=== PATIENT | female | born 1960 | race Caucasian/White ===

== ENCOUNTER → 2017-01-20 | Outpatient (CLI) | payer BC ==
[~2017-01-20] MED LIST: ACET-24 PO; ASPEC325 PO; BCPILLS PO; BIOTPOW17 PO; CALC600T9 PO; CHOL2000 PO; CLB/200 PO; FRRG PO; GLC/500 PO; MORP-157 PO; RXC5 PO; TRAM-10 PO; VALA500T60 PO
--- NOTE | 2017-01-20 17:51 | DIAGNOSTIC IMAGING REPORT ---
MRI right knee RIGHT LOWER EXT JOINT WITHOUT CLINICAL HISTORY: RIGHT KNEE PAIN Right pain TECHNIQUE: MRI multi axial acquisition COMPARISON STUDY: None FINDINGS: Severe degenerative change medial joint compartment. Considerable loss of articular services of the medial femoral condyle. Deterioration with loss of the substance of the bulk of the medial meniscus. Peripheral osteophytic reaction from the medial joint compartment. Moderate reactive bone marrow edema of the medial femoral condyle and medial tibial plateau. Minimal/mild degenerative change lateral joint compartment. Lateral meniscus appears intact. The collateral ligaments appear to be intact. There is a mild degree of edematous change of the medial collateral ligament. There is patellofemoral joint shows considerable loss of articular surface of the mid and medial patella. Chondromalacia patella is felt to be present. There is a very small joint effusion. There is no significant popliteal cyst. Cruciate ligaments are intact. IMPRESSION: 1. Severe degenerative change medial joint compartment with considerable substance loss of the medial meniscus . 2. Considerable deterioration of the articular services of the medial femoral condyle as well as medial tibial plateau. 3. Significant chondromalacia patella. 4. Reactive osteophytic change projecting from all major joint compartments. Electronically signed by: Pj Alanis M.D. 01/20/2017 5:50 PM Dictated Date/Time: 01/20/2017 5:45 PM
== END ==
LOC: C.MRIBC 16:12
PROVIDERS: ATTEND Orthopaedic Surgery
DX: M25.561 Pain in right knee (principal)

== ENCOUNTER 2017-03-14 06:07 | Inpatient (IN) | payer BC ==
[2017-02-22 14:21] VITALS: BMI 27.0
--- NOTE | 2017-02-22 14:53 | PAT Medication Instructions ---
Service Date Feb 22, 2017. Current Home Medication List Control Pills ( Control Pills), 1 TAB PO DAILY Calcium Carbonate-Vitamin D (Calcium + D), 1 TAB PO QAM Celecoxib (CeleBREX), 200 MG PO HS Cholecalciferol (Vitamin D3), 1 CAP PO QAM Metformin Hcl (Glucophage), 500 MG PO BID Tramadol (Ultram), 50 MG PO Q6H PRN for RN Valacyclovir (Valtrex), 500 MG PO BID PRN for PRN [Biotin], 1 TAB PO BID Medication Instructions For Your Scheduled Surgery - Check with surgeon for instructions: Celecoxib (CeleBREX), 200 MG PO HS - Hold the following medications 48 hours prior to surgery: Metformin Hcl (Glucophage), 500 MG PO BID - Hold the following medications the morning of surgery: [Biotin], 1 TAB PO BID Cholecalciferol (Vitamin D3), 1 CAP PO QAM Calcium Carbonate-Vitamin D (Calcium + D), 1 TAB PO QAM - Take the following medications the morning of surgery with a sip of water: Tramadol (Ultram), 50 MG PO Q6H PRN for RN (okay to take up to 4 hours prior to surgery if needed) Valacyclovir (Valtrex), 500 MG PO BID PRN for PRN (if needed) - Take the following medications as scheduled the night before surgery: [Biotin], 1 TAB PO BID Tramadol (Ultram), 50 MG PO Q6H PRN for RN (if needed) Valacyclovir (Valtrex), 500 MG PO BID PRN for PRN (if needed) If you have any questions please call us at [phone] or [phone] or [phone]
--- NOTE | 2017-02-22 15:27 | DIAGNOSTIC IMAGING REPORT ---
CHEST PREADMISSION(PA/LAT) CLINICAL HISTORY: PAT preoperative evaluation COMPARISON STUDY: No previous studies for comparison. FINDINGS: The bones soft tissues and hemidiaphragms are normal. The cardiomediastinal silhouette is normal. The lungs are clear. The pulmonary vasculature is normal. Slight interstitial prominence most likely chronic IMPRESSION: No acute process. The above report was generated using voice recognition software. It may contain grammatical, syntax or spelling errors. Electronically signed by: Pj Alanis M.D. 02/22/2017 3:25 PM Dictated Date/Time: 02/22/2017 3:25 PM
[2017-02-22 16:04] LABS: PROTHROMBIN TIME (PATIENT) 10.3 SECONDS (9.0-12.0)
--- NOTE | 2017-03-10 08:25 | HISTORY & PHYSICAL EXAMINATION ---
DATE OF ADMISSION: 03/14/2017 CHIEF COMPLAINT: Right knee pain. HISTORY OF PRESENT ILLNESS: A 56-year-old white female who I have been following for several years for right knee pain and degenerative joint disease. 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 She has had a 4-5+ year history of right knee pain and discomfort describes it has gotten worse. She has had an extensive workup which revealed advanced DJD. She has been through conservative care including injections which provided just very minimal relief for a couple days anymore. 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 She is bothered by pain all the time. The more she stands the more she hurts. She limps as the day goes on. Of note, the patient does have a history of cerebral aneurysm which will be treated at some point in the future. She has been seen by her neurologist and cleared for surgery. They would like to have her knee replaced first before considering the aneurysm and she will need to be on aggressive anticoagulation uninterrupted for a period of time. PAST MEDICAL HISTORY: 1. Cerebral aneurysm. 2. Diabetes. 3. Mild obesity with a BMI of 28. PAST SURGICAL HISTORY: Include: 1. Left arm surgery x2. 2. Brain aneurysm repair. 3. Tonsillectomy. 4. Colonoscopy. 5. Angioplasty of the brain x3. ALLERGIES: None. CURRENT MEDICINES: 1. Metformin 500 mg twice a day. 2. Celebrex once a day. 3. Vitamin D. 4. Biotin. 5. Valtrex. 6. Calcium. SOCIAL HISTORY: Significant for a 56-year-old female. 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 Does not smoke. FAMILY HISTORY: Noncontributory. REVIEW OF SYSTEMS: Significant for fairly well controlled diabetes. She does have a cerebral aneurysm which is stable but indicated for repair later on. Denies any chest pain or shortness of breath. No focal neurological deficits. No known bleeding problems. PHYSICAL EXAMINATION: GENERAL: Reveals a healthy pleasant, middle-aged female. She looks to be in pretty good health. HEAD, EYES, EARS, NOSE, AND THROAT EXAMINATION: Benign. NECK: Supple. No lymphadenopathy. LUNGS: Clear to auscultation. HEART: Regular rate and rhythm. ABDOMEN: Soft, nontender, nondistended. EXTREMITY EXAMINATION: Grossly neurovascularly intact except as follows: Examination of the right knee reveals the patient walks with a little bit of a stiff knee gait. She has got a small effusion in her knee. She has a pretty stiff knee with a flexion contracture of about 10-15 degrees. She can flex to about 110. No instability. No pain with hip motion. X-RAYS: X-rays of the knee were reviewed. It shows advanced right knee DJD. She has complete loss of her medial joint space. 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 She would like to have her knee replaced. She does have a cerebral aneurysm, but has been cleared for surgery and they would like to get her through knee surgery and then fix that. PLAN: We are going to take her to the operating room and do a right total knee replacement. The risks and benefits of this procedure were explained to the patient including but not limited to DVT, PE, , infection, neurological injury, vascular injury, bleeding problem, pain, limited range of motion, stiffness, failure to relieve symptoms, incomplete relief of symptoms, need for further surgery in the future, fracture, leg length inequality, nerve palsy, need for revision surgery, incomplete relief of symptoms etc. The patient understands and desires to proceed. Informed consent was obtained. [facility] They recommended we try and keep her systolic blood pressure below 160 due to this aneurysm. We will have the medicine physicians assist with that. She knows to hold her metformin 2 days preop. We will use insulin sliding scale coverage in the hospital.
[~2017-03-14] VITALS: Ht 180.3 cm; Wt 88.4 kg
[2017-03-14] VITALS (8 sets, daily range): BP systolic 103–139; BP diastolic 61–84; PULSE 66–82; TEMP 36.4–37.3; O2SAT 96–100; Ht 180.3 cm; Wt 88.4 kg
[~2017-03-14 06:07] MED LIST changes: -ACET-24 PO; +ACETAMINOPHEN 500 MG TAB PO SCH; -ASPEC325 PO; -BCPILLS PO; +BUPIVACAINE LIPOSOME 266 MG, BUPIVACAINE/EPINEPHRINE INJ 50 ML, SODIUM CHLORIDE 0.9% PF... INFIL SCH; +CEFAZOLIN 2000 MG/60 ML D5W 60 ML IV SCH; +FAMOTIDINE 20 MG TAB PO SCH; -FRRG PO; +GABAPENTIN 300 MG CAP PO SCH; +LACTATED RINGER'S 1000ML 1,000 ML IV SCH; +LACTATED RINGER'S 1000ML 500 ML IV ONE; +METOCLOPRAMIDE HCL 10 MG TAB PO SCH; -MORP-157 PO; -RXC5 PO; +SCOPOLAMINE 1.5 MG TDSY TD SCH
[2017-03-14] MEDS ORDERED: MIDAZOLAM HCL 1 MG/ML 2ML VIAL ONE ×2 (06:18→09:29)
[2017-03-14] MEDS ORDERED: FENTANYL CITRATE INJ 50 MCG/1 ML 2 ML VIAL ONE (06:18)
[2017-03-14] MEDS ORDERED: TRANEXAMIC ACID INJ 1,000 MG in SODIUM CHLORIDE 0.9% 100ML 100 ML IV SCH ×2 (06:30→17:00)
--- NOTE | 2017-03-14 06:49 | History & Physical Bridge Note ---
H&P Re-Evaluation Bridge Note: I have examined the patient, reviewed the History & Physical and in the interval since the performance of the History & Physical I have noted the following changes of clinical significance: No changes noted
[2017-03-14] MEDS ORDERED: BUPIVACAINE 0.5 % 5 MG/1 ML PF 10ML VIAL ONE (07:51)
[2017-03-14] MEDS ORDERED: BUPIVACAINE 0.25% 30 ML VIAL ONE (07:51)
[2017-03-14] MEDS ORDERED: EpHEDrine SULFATE INJ 50 MG/ML AMP IV PRN (08:15)
[2017-03-14] MEDS ORDERED: ATROPINE SULFATE 0.1 MG/ML 5ML SYR IV PRN (08:15)
[2017-03-14] MEDS ORDERED: ONDANSETRON INJ 2 MG/ML 2 ML VIAL IV PRN ×2 (08:15→11:00)
[2017-03-14] MEDS ORDERED: BUPIVACAINE/EPINEPHRINE 0.5% MPF 1:200,000 10 ML VIAL ONE (09:13)
[2017-03-14] MEDS ORDERED: BACITRACIN 50000 UNIT VIAL ONE (09:13)
[2017-03-14] MEDS ORDERED: BUPIVACAINE LIPOSOME 1/3% 266 MG/20 ML VIAL INFIL ONE (09:13)
[2017-03-14] MEDS ORDERED: SODIUM CHLORIDE 0.9% PF 50 ML VIAL ONE (09:13)
[2017-03-14] MEDS ORDERED: PROPOFOL IV EMULSION 10 MG/ML 20 ML VIAL IV ONE (09:35)
--- NOTE | 2017-03-14 10:58 | [facility] Post Operative Brief Note ---
Immediate Operative Summary Operative Date Mar 14, 2017. Pre-Operative Diagnosis Advanced Right Knee Degenerative Joint Disease Post-Operative Diagnosis Advanced Right Knee Degenerative Joint Disease Procedure(s) Performed Right Total Knee Arthroplasty, Cemented Surgeon Dr. Lorenzana Avionics Test Technician Surgeon(s) Reji Curtis PA-C Estimated Blood Loss 50 mL Findings Right Knee DJD Fluids (cc crystalloids) 1100 cc Specimens A: Right Knee Bone and Tissue Drains None Anesthesia Spinal Complication(s) None Disposition Recovery Room / PACU
[2017-03-14] MEDS ORDERED: DiphenhydrAMINE HCL 50 MG/ML VIAL IV PRN (11:00)
[2017-03-14] MEDS ORDERED: GLUCAGON FOR INJ 1 MG VIAL SQ PRN (11:00)
[2017-03-14] MEDS ORDERED: ALUMINUM/MAGNESIUM/SIMETH (MAALOX MAX) 30 ML UDC PO PRN (11:00)
[2017-03-14] MEDS ORDERED: GLUCOSE 10 TABS/TUBE PO PRN (11:00)
[2017-03-14] MEDS ORDERED: ZOLPIDEM TARTRATE 5 MG TAB PO PRN (11:00)
[2017-03-14] MEDS ORDERED: DEXTROSE 50% 50 ML SYR IV PRN (11:00)
[2017-03-14] MEDS ORDERED: MoRPHine SULFATE 2 MG/ML CARP IV PRN (11:00)
[2017-03-14] MEDS ORDERED: BISACODYL 10 MG SUPP PR PRN (11:00)
[2017-03-14] MEDS ORDERED: MAGNESIUM HYDROXIDE SUSP 30 ML UDC PO PRN (11:00)
[2017-03-14] MEDS ORDERED: GLUCOSE 40% GEL 15 GM TUBE PO PRN (11:00)
[2017-03-14] MEDS ORDERED: METOCLOPRAMIDE HCL INJ 5 MG/ML 2 ML VIAL IV PRN (11:00)
[2017-03-14] MEDS ORDERED: SILVER SULFADIAZINE 1% CR 50 GM JAR EXT PRN (11:00)
--- NOTE | 2017-03-14 11:26 | OPERATIVE REPORT ---
DATE OF OPERATION: 03/14/2017 SURGEON: Winston Lorenzana MD LANDING SIGNAL OFFICER: DINH Ni PREOPERATIVE DIAGNOSIS: Right knee degenerative joint disease. POSTOPERATIVE DIAGNOSIS: Same. PROCEDURE PERFORMED: Right cemented posterior stabilized total knee arthroplasty. COMPLICATIONS: None. ESTIMATED BLOOD LOSS: 50 mL. FLUID REPLACEMENT: 1100 mL crystalloid fluid replacement. TOURNIQUET TIME: 52 minutes at 300 mmHg. ANESTHESIA: Spinal with adductor canal block. DRAINS: None. SPECIMENS: Right knee sent for pathology. 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 She has been through extensive conservative care without adequate relief. X-rays showed advanced DJD. The patient elected to proceed with operative treatment. OPERATIVE FINDINGS: Operative findings revealed advanced right knee DJD. She had grade 4 [id number] disease of the medial femoral condyle, medial tibial plateau as well as the patellofemoral joint. The lateral compartment was fairly well preserved. She did have a varus deformity to her knee. She had osteophytes in the medial and patellofemoral compartments. Moderate size joint effusion. OPERATIVE IMPLANTS: Operative implants consisted of: 1. Biomet Vanguard size 70 right posterior stabilized femoral component. 2. Biomet size 75 tibial tray. 3. A 14-mm posterior stabilized polyethylene insert. 4. A 34 x 8.5 all poly patella. OPERATIVE PROCEDURE: The patient was taken to the operating room, identified and placed on the operating table in the supine position. All contact areas were appropriately padded. IV antibiotics were provided by anesthesia team. A spinal anesthetic and adductor canal block had been provided in the holding area. Watson catheter was placed in sterile fashion. A right thigh tourniquet was then placed and the right lower extremity was then prepped and draped in the usual sterile fashion. The right leg was elevated and exsanguinated with Esmarch and tourniquet was placed at 300 mmHg. An anterior approach to the right knee was then performed through a longitudinal incision centered over the patella. Sharp dissection was carried out through the subcutaneous tissues down to the level of the extensor mechanism. A medial parapatellar arthrotomy incision was made. Some subperiosteal dissection was carried out medially. The fat pad was resected from beneath the patellar tendon. The lateral patellofemoral ligament was released. The patella was everted and knee was flexed. The osteophytes were taken off the distal femur. The ACL and PCL were then released from the distal femur and the tibia subluxated anteriorly. The external tibial alignment jig was then placed in the anterior face of the tibia and adjusted about 16 mm medially. Proximal tibial cut was made to remove about 3-4 mm of bone from the medial side. The tibia was sized to a size 75. Attention was then drawn to the femur. The distal femur was entered with a sharp drill. Intramedullary canal was suctioned. A right 5-degree valgus cutting guide was placed. Distal femoral cutting block was pinned in place. Distal femoral cut was made to take an additional 3 mm of bone off the distal femur. The femur was then sized to a size 70. It was downsized just slightly. The AP cutting block was pinned parallel to the epicondylar axis, which was 3 degrees of external rotation. The anterior cut, anterior chamfer, posterior cut, and posterior chamfer cuts were made. Box cutting guide was placed and adjusted slightly lateral and the box cut was made. The knee was flexed. The remnants of the medial and lateral menisci were excised. The osteophytes were taken off the posterior aspect of the femur. Trial femoral component was placed. Tibial tray was pinned in maximum external rotation and drill and stem punch were used to create defect in proximal tibia for the tibial tray. The knee was then trialed and the 14-mm insert fit most appropriately. Attention was then drawn to the patella. The patella was cleaned of all soft tissues. Patella thickness measured 22 mm in thickness and it was cut down to 14. It was sized to a size 34 patella. Lateral osteophyte was removed. Patella button was placed. Knee was taken through range of motion and the patella tracked nicely with no thumbs test. Attention was then drawn toward placement of the permanent components. All trial components were removed. A bone plug was placed in the distal femur to limit blood loss. A double batch of Palacos G cement was mixed. A right size 70 posterior stabilized femoral component, size 75 tibial tray, 14-mm posterior stabilized polyethylene insert, and a 34 x 8.5 all poly patella were then cemented in place. Knee was brought out into full extension until cement hardened. A final cement check was then performed. The pericapsular tissues were injected with 75 mL of combination of 20 mL of Exparel, 25 mL of 0.5% Marcaine with epinephrine and 30 mL of normal saline. The patient did receive 1 gram of tranexamic acid. The tourniquet was then let down for final tourniquet time of 52 minutes. Hemostasis was assured with use of electrocautery. The wound was once again irrigated. The extensor mechanism was then closed with a combination of #1 PDS suture and #1 Vicryl suture in a [id number] fashion. Extensor mechanism was checked and found to be intact. The subcutaneous tissues were then closed with 2-0 Dexon suture in a buried interrupted fashion. Skin was closed skin lila. Leg was then cleaned and dried and a sterile dressing of Xeroform, 4 x 4, sterile cast padding and Joel bandage were applied. The patient was then transferred to the recovery room in stable condition. The patient tolerated the procedure well with no complications. All needle and sponge counts were correct at the end of the operation. I attest to the content of the Intraoperative Record and any orders documented therein. Any exception s are noted below.
--- NOTE | 2017-03-14 11:43 | Anesthesiology Progress Note ---
Anesthesia Post Op Note Date & Time Mar 14, 2017 at 11:42 Vital Signs Pain Intensity: 0 Vital Signs Past 12 Hours Date Time Temp Pulse Resp B/P (MAP) Pulse Ox O2 Delivery O2 Flow Rate FiO2 03/14/17 11:02 36.3 78 16 96/66 98 Mask 10 03/14/17 06:39 36.5 77 20 128/84 96 Notes Mental Status: alert / awake / arousable, participated in evaluation Pt Amnestic to Procedure: Yes Nausea / Vomiting: adequately controlled Pain: adequately controlled Airway Patency, RR, SpO2: stable & adequate BP & HR: stable & adequate Hydration State: stable & adequate Neuraxial Anesthesia: was administered, sensory block is resolving Anesthetic Complications: no major complications apparent
--- NOTE | 2017-03-14 11:45 | DIAGNOSTIC IMAGING REPORT ---
TWO VIEWS RIGHT KNEE CLINICAL HISTORY: Postoperative examination. FINDINGS: AP and crosstable lateral portable views of the right knee are obtained. A right knee arthroplasty is in near anatomic alignment. There has been undersurface remodeling of the patella. No acute fracture is seen. There are expected postoperative changes around the knee including skin clips, soft tissue edema, and subcutaneous gas. IMPRESSION: Expected postoperative changes status post right knee arthroplasty. No acute fracture is seen. Electronically signed by: Triston Gage M.D. 03/14/2017 11:44 AM Dictated Date/Time: 03/14/2017 11:44 AM
--- NOTE | 2017-03-14 13:37 | PROGRESS NOTE ---
DATE: 03/14/2017 DATE: 03/14/2017 SUBJECTIVE: A 56-year-old white female postop from a right knee replacement. She is doing pretty well. She does not have any sensation or feeling in her legs yet. No chest pain or shortness of breath. Not feeling dizzy or lightheaded. OBJECTIVE: VITAL SIGNS: Temperature is 36.4. Vital signs stable. PHYSICAL EXAMINATION: GENERAL: Reveals a healthy pleasant, middle-aged female. She is sitting up in bed, looks quite comfortable. LUNGS: Clear to auscultation. HEART: Regular rate and rhythm. ABDOMEN: Soft, nontender, nondistended. EXTREMITY EXAMINATION: Grossly neurovascularly intact except as follows: Examination of the right lower extremity reveals the leg to be well aligned. Dressing is clean, dry and intact. She has no significant sensory or motor function yet in either leg. She has got good distal pulses. She has got brisk refill. IMAGING: X-rays of the right knee from recovery room were reviewed. It shows a cemented posterior stabilized total knee arthroplasty. Components looked to be in good position. No signs of problems. ASSESSMENT: A 56-year-old white female postop from a right total knee replacement, doing well. She does have a history of a cerebral aneurysm. She is also diabetic. Her pain is controlled. Her block is still in effect. PLAN: 1. DVT prophylaxis including thigh-high TEDs, SCDs, and aspirin twice a day. 2. PT/OT. Weight bear as tolerated. Right total knee protocol. 3. Pain control. Really not having any pain yet. We will have to adjust medications as needed as the spinal wears off. 4. IV antibiotics x24 hours. 5. Cerebral aneurysm. She is recommended to keep her systolic blood pressure below 160. We have counseled medicine service to help us with this if there are any issues. 6. Disposition. She is planning to be discharged to home with some home health once adequately recovered.
[2017-03-14] MEDS: SODIUM CHLORIDE 0.9% 1000ML 1,000 ML IV SCH ×2 (15:09→20:54)
[2017-03-14] MEDS: OXYCODONE HCL IR 5 MG TAB (IMMEDIATE RELEASE) PO PRN (16:29)
--- NOTE | 2017-03-14 18:26 | Medical Consult ---
Consultation Date of Consultation: Mar 14, 2017. Attending Physician: Winston Lorenzana M.D. Reason for Consultation: Post Op Medical Management History of Present Illness 56 year old female who is s/p right TKA today by Dr. Lorenzana. Patient reports increasing right knee pain over the past few years. She unfortunately failed outpatient conservative measures and therefore presented for the planned procedure today. Post operatively the patient is doing well. She reports her pain is well controlled. She reports mild residual numbness to the BLLE. She denies chest pain and shortness of breath. No headache or blurred vision. She denies abdominal pain, nausea, or vomiting. Watson is in place draining clear yellow urine. 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, s/p coiling MRA 10/2016 shows enlarging and will need to be stented Status: Chronic Surgical Problems: (1) Hx of tonsillectomy Status: Chronic Family History FH: breast cancer MOTHER Social History Smoking Status: Never Smoker Alcohol Use: none Allergies Coded Allergies: No Known Allergies (Unverified , 03/14/17) Home Medications Glucophage (Metformin Hcl) 500 Mg Tab 500 Mg PO BID Calcium + D (Calcium Carbonate-Vitamin D) 1 Tab Tab 1 Tab PO QAM Valtrex (Valacyclovir HCl) 500 Mg Tab 500 Mg PO BID PRN [Biotin] 1 Tab PO BID Vitamin D3 (Cholecalciferol) 2,000 Unit Cap 1 Cap PO QAM 90 Days CeleBREX (Celecoxib) 200 Mg Cap 200 Mg PO HS Ultram (Tramadol HCl) 50 Mg Tab 50 Mg PO Q6H PRN Current Inpatient Medications Current Inpatient Medications Medications (Trade) Dose Ordered Sig/Nitin Route Start Time Stop Time Status Last Admin Dose Admin Lactated Ringer's 1,000 ml @ 15 mls/hr Q24H IV 03/14/17 06:00 03/15/17 05:59 03/14/17 07:25 15 MLS/HR Cefazolin Sodium 60 ml @ 100 mls/hr PREOP IV 03/14/17 06:00 03/14/17 18:00 03/14/17 09:26 100 MLS/HR Acetaminophen (Tylenol Tab) 1,000 mg PREOP PO 03/14/17 06:00 03/14/17 18:00 03/14/17 07:23 1,000 MG Bupivacaine Liposome 266 mg/ Bupivacaine HCl/ Epinephrine Bitart 50 ml/ Sodium Chloride 30 ml/Syringe 100 ml @ 0 mls/hr 06 INFIL 03/14/17 06:00 03/14/17 18:00 Famotidine (Pepcid Tab) 20 mg PREOP PO 03/14/17 06:00 03/14/17 18:00 03/14/17 07:23 20 MG Gabapentin (Neurontin Cap) 600 mg PREOP PO 03/14/17 06:00 03/14/17 18:00 03/14/17 07:22 600 MG Metoclopramide HCl (Reglan Tab) 10 mg PREOP PO 03/14/17 06:00 03/14/17 18:00 03/14/17 07:22 10 MG Miscellaneous (Remove Transderm-Scop Patch) 1 ea Q72H N/A 03/17/17 06:00 03/17/17 06:01 Tranexamic Acid 1000 mg/Sodium Chloride 110 ml @ 660 mls/hr TODAY@0630 IV 03/14/17 06:30 03/14/17 15:59 Lactated Ringer's 1,000 ml @ 60 mls/hr [id number] IV 03/14/17 06:00 03/14/17 22:39 Sodium Chloride 1,000 ml @ 100 mls/hr Q10H IV 03/14/17 10:58 03/15/17 10:57 Cefazolin Sodium 2000 mg/Dextrose 60 ml @ 100 mls/hr Q8H IV 03/14/17 18:00 03/15/17 02:35 Oxycodone HCl (Roxicodone Immediate Rel Tab) 1 TABLET FOR PAIN RATING... Q4H PRN PO 03/14/17 11:00 03/28/17 10:59 Morphine Sulfate (MoRPHine SULFATE INJ) 2 mg Q1H PRN IV 03/14/17 11:00 03/28/17 10:59 Acetaminophen (Tylenol Tab) 1,000 mg Q8H PO 03/14/17 22:00 04/13/17 10:59 Magnesium Hydroxide (Milk Of Magnesia Susp) 30 ml Q6H PRN PO 03/14/17 11:00 04/13/17 10:59 Bisacodyl (Dulcolax Supp) 10 mg DAILY PRN NV 03/14/17 11:00 04/13/17 10:59 Senna (Senokot Tab) 17.2 mg HS PO 03/14/17 21:00 04/13/17 20:59 Docusate Sodium (coLACE CAP) 100 mg BID PO 03/14/17 21:00 04/13/17 20:59 Diphenhydramine HCl (Benadryl Cap) 25 mg Q8H PRN PO 03/14/17 11:00 04/13/17 10:59 Diphenhydramine HCl (Benadryl Inj) 25 mg Q8H PRN IV 03/14/17 11:00 04/13/17 10:59 Al Hydrox/Mg Hydrox/Simethicone (Maalox Max Susp) 15 ml Q4H PRN PO 03/14/17 11:00 04/13/17 10:59 Zolpidem Tartrate (Ambien Tab) 5 mg HSZ PRN PO 03/14/17 11:00 04/13/17 10:59 Multivitamins (Multivitamin Tab) 1 tab QAM PO 03/15/17 09:00 04/14/17 08:59 Ondansetron HCl (Zofran Inj) 4 mg Q6H PRN IV 03/14/17 11:00 04/13/17 10:59 Metoclopramide HCl (Reglan Inj) 10 mg Q6H PRN IV 03/14/17 11:00 04/13/17 10:59 Ferrous Gluconate (Ferrous Gluconate Tab) 324 mg TIDM PO 03/14/17 17:45 04/13/17 17:44 Pantoprazole Sodium (Protonix Tab) 40 mg QAM PO 03/15/17 09:00 04/14/17 08:59 Silver Sulfadiazine (Silvadene 1% Crm 50GM Jar) 1 appln BID PRN EXT 03/14/17 11:00 04/13/17 10:59 Aspirin (Ecotrin Tab) 325 mg BID PO 03/14/17 21:00 04/13/17 20:59 Tapentadol (Nucynta Er Tab) 50 mg Q12 PO 03/14/17 21:00 04/13/17 20:59 Tranexamic Acid 1000 mg/Sodium Chloride 110 ml @ 660 mls/hr Q6H IV 03/14/17 17:00 03/14/17 17:09 Ketorolac Tromethamine (Toradol Inj) 30 mg Q6H IV. 03/14/17 18:00 03/16/17 12:01 Calcium/Vitamin D (Caltrate Plus Tab) 1 tab QAM PO 03/15/17 09:00 04/14/17 08:59 Cholecalciferol (Vitamin D Tab) 2,000 inter.unit QAM PO 03/15/17 09:00 04/14/17 08:59 Insulin Human Regular (novoLIN-R) SLIDING SCALE ACHS SC 03/14/17 17:15 04/13/17 17:14 Glucose (Glucose 40% Gel) 15-30 GRAMS 15 GRAMS... UD PRN PO 03/14/17 11:00 04/13/17 10:59 Glucose (Glucose Chew Tab) 4-8 Tablets 4 Tabl... UD PRN PO 03/14/17 11:00 04/13/17 10:59 Dextrose (Dextrose 50% 50ML Syringe) 25-50ML OF 50% DW IV FOR... UD PRN IV 03/14/17 11:00 04/13/17 10:59 Glucagon (Glucagon Inj) 1 mg UD PRN SQ 03/14/17 11:00 04/13/17 10:59 Review of Systems ROS per HPI, all other systems reviewed and negative Physical Exam Date Time Temp Pulse Resp B/P (MAP) Pulse Ox O2 Delivery O2 Flow Rate FiO2 03/14/17 14:38 36.8 82 18 115/70 (85) 100 Nasal Cannula 2.0 03/14/17 13:30 36.5 71 16 139/84 (102) 99 Nasal Cannula 2.0 03/14/17 13:00 36.4 72 16 123/81 (95) 100 Nasal Cannula 2.0 03/14/17 12:30 99 Nasal Cannula 2.0 03/14/17 12:30 99 Nasal Cannula 2.0 03/14/17 12:30 36.4 69 16 118/81 (93) 99 Nasal Cannula 2.0 03/14/17 12:17 72 13 99 03/14/17 12:17 70 13 03/14/17 12:15 113/77 03/14/17 12:12 68 14 815/17 12:12 68 14 98 03/14/17 12:09 120/81 03/14/17 12:07 68 13 03/14/17 12:07 67 13 99 03/14/17 12:06 120/81 03/14/17 12:02 90 19 100 03/14/17 12:02 87 19 03/14/17 12:01 114/80 03/14/17 11:57 69 12 03/14/17 11:57 68 12 98 03/14/17 11:56 109/78 03/14/17 11:52 80 12 03/14/17 11:52 36.1 83 18 114/72 97 Nasal Cannula 2 03/14/17 11:52 83 12 97 03/14/17 11:51 114/72 03/14/17 11:47 71 13 99 03/14/17 11:47 71 13 03/14/17 11:46 112/77 03/14/17 11:42 72 13 03/14/17 11:42 73 13 100 03/14/17 11:41 133/77 03/14/17 11:37 67 11 100 03/14/17 11:37 68 11 03/14/17 11:36 110/74 03/14/17 11:32 70 13 99 03/14/17 11:32 69 13 03/14/17 11:31 94/70 03/14/17 11:27 76 13 03/14/17 11:27 79 13 100 03/14/17 11:26 100/72 03/14/17 11:22 78 18 03/14/17 11:22 75 18 100 03/14/17 11:21 116/77 03/14/17 11:17 79 22 100 03/14/17 11:17 77 22 03/14/17 11:16 111/70 03/14/17 11:12 76 15 03/14/17 11:12 77 15 100 03/14/17 11:11 103/72 03/14/17 11:07 86 16 100 03/14/17 11:07 81 16 03/14/17 11:06 114/62 1517 11:03 96/66 03/14/17 11:02 36.3 78 16 96/66 98 Mask 10 8/15/17 06:39 36.5 77 20 128/84 96 General Appearance: no apparent distress Head: normocephalic Eyes: normal inspection ENT: hearing grossly normal Neck: supple, no JVD Respiratory/Chest: lungs clear, normal breath sounds, no respiratory distress Cardiovascular: regular rate, rhythm, no edema, normal peripheral pulses Abdomen/GI: normal bowel sounds, non tender, soft Extremities/Musculoskelatal: + pertinent finding (s/p right knee surgery, dressing dry and intact, CSM checks intact to RLE ) Neurologic/Psych: no motor/sensory deficits, alert, normal mood/affect, oriented x 3 Skin: normal color, warm/dry Laboratory Results Last 24 Hours Test 03/14/17 11:09 Bedside Glucose 126 mg/dl Assessment & Plan S/P RIGHT TKA - POD#0 - activity and wound care orders as per ortho - pain control with bowel regimen - PT/OT - monitor H/H for acute blood loss anemia and transfuse blood products PRN HX RIGHT ICA ANEURYSM - ruptured in 2010, s/p coiling - recent imaging showed enlargement and needs to be stented - discussed with Martha Velasco PA-C ([facility] [place] neurosurgery) - ok for patient to be on ASA 325mg BID for DVT prophylaxis DM - hgb a1c 6.5 12/2016 - hold oral agents and utilize SSI while hospitalized DVT PROPHYLAXIS - ASA 325mg BID per ortho Thank you for this consultation. We will follow the patient with you during their hospital stay. You can reach a member of the [facility] Hospitalist Team 20/02 via pager @ .
[2017-03-14] MEDS: CEFAZOLIN IV 2,000 MG in DEXTROSE 5% 50ML 50 ML IV SCH (18:32)
[2017-03-14] MEDS: KETOROLAC TROMETHAMINE 30 MG/ML VIAL IV. SCH ×2 (18:32→23:25)
[2017-03-14] MEDS: FERROUS GLUCONATE 324 MG TAB PO SCH (18:32)
[2017-03-14] MEDS: INSULIN HUMAN REGULAR SC SCH ×2 (18:37→20:59)
[2017-03-14] MEDS: ASPIRIN 325 MG ECTAB PO SCH (20:57)
[2017-03-14] MEDS: DOCUSATE SODIUM 100 MG CAP PO SCH (20:57)
[2017-03-14] MEDS: SENNA 8.6 MG TAB PO SCH (20:57)
[2017-03-14] MEDS ORDERED: BIOTIN PO SCH (21:00)
[2017-03-14] MEDS: TAPENTADOL ER 50 MG TABCR PO SCH (21:01)
[2017-03-14] MEDS: ACETAMINOPHEN 500 MG TAB PO SCH (21:02)
[2017-03-14] MEDS ORDERED: RXC5 PO (22:06)
[2017-03-14] MEDS ORDERED: ACET-24 PO (22:06)
[2017-03-14] MEDS ORDERED: ASPEC325 PO (22:06)
[2017-03-14] MEDS ORDERED: FRRG PO (22:06)
[2017-03-14] MEDS ORDERED: MORP-157 PO (22:06)
--- NOTE | 2017-03-14 22:09 | Discharge Instructions ---
Discharge Instructions Date of Service Mar 14, 2017. Admission Reason for Admission: Right Knee Degenerative Joint Disease Discharge Discharge Diagnosis / Problem: Right Knee Replacement Discharge Goals Goal(s): Decrease discomfort, Improve function, Increase independence, Improve disease control, Therapeutic intervention Activity Recommendations Activity Limitations: per Instructions/Follow-up section Weightbearing Status: Right weightbearing . Instructions / Follow-Up Instructions / Follow-Up ACTIVITY RECOMMENDATIONS: Physical Therapy: * You will go to physical therapy three times each week for four to six weeks after your surgery in order to regain your knee range of motion and to retrain your knee to work properly. * It is just as important to make sure you are getting your knee perfectly straight as it is to regain your knee bend. * Taking a pain pill an hour before therapy can help you have a more productive and comfortable therapy session. Home Exercise: * You were shown a series of exercises (heel props, heel slides, etc.) in the hospital. Do these exercises three to four times each day including the exercises you were shown in physical therapy. Walking: * Get up and walk several times each day. For the first four weeks, try not to stand or walk for more than one hour at a time. If you do stand or walk for more than one hour, you will not hurt anything, but your knee and leg will likely swell. * As you feel comfortable, you may change from the walker or crutches to a cane and then to independent walking. MEDICATIONS: New Medicine: * You will likely be taking one or more of these medications: 1. MS Contin - A long-acting pain medication. Take 1 tablet twice a day for the first ten days to decrease your baseline level of pain. 2. Oxycodone - A quick and shorter-acting pain medication. Take one to two tablets every four to six hours to lessen your pain. 3. Iron Sulfate - Take three times each day for the month after surgery to help you replace the blood lost during surgery. 4. Aspirin - Thins your blood to lessen the chance of forming a blood clot. * The most common side effects of pain medicine and iron are nausea and constipation. If nausea or constipation is too much of a problem or if you have any questions about your new medicines or doses, call [facility] at . We will try to help you manage these issues. VERY IMPORTANT TO READ AND REVIEW" Pain: * The immediate post-operative period after knee replacement surgery is often quite painful. * You are given a prescription for pain medicine. You should take it, as directed, when you need it, especially before physical therapy and before going to bed. Pain that interferes with sleep is very common and can last several months. * You will likely need pain medicine for the first four to six weeks. It will not stop all of the pain. The pain will lessen and as you feel better, you may change to milder pain medicine such as Tylenol. * The most common side effects of pain medicine are nausea and constipation, so don't take more than you need. SPECIAL CARE INSTRUCTIONS: TEDs/Elastic Stockings: * The white elastic stockings help limit swelling and prevent blood clots from forming in your legs. The more you wear them, the more they work. * Wear them for six weeks after knee replacement surgery and four weeks after partial knee replacement. Prevention of Infection: * Take antibiotics one hour before any dental cleaning, dental work, urological procedure, gastrointestinal procedure or any invasive surgery in order to prevent your new joint from getting infected. * You may get the antibiotics from the doctor performing the procedure or you may call our office at before and we will call in a prescription to the pharmacy of your choice. Things to Watch For: * Drainage from the incision site that occurs more than one week after your surgery. * Severely increased knee/leg pain or swelling. * Increased redness at the incision site. * Fever above 102 degrees Fahrenheit. * Unusual chest pain or shortness of breath. * Unusual pain or burning with urination. Call [facility] at with any of the above problems or if you have any questions about your medicines or recovery. FOLLOW UP VISIT: Make an appointment to see your doctor for approximately two weeks after surgery for a progress check and staple removal by calling the office at . Current Hospital Diet Patient's current hospital diet: Diabetes Type 2 Diet Discharge Diet Recommended Diet: Diabetes Type 2 Diet Procedures Procedures Performed: Right Total Knee Arthroplasty, Cemented Pending Studies Studies pending at discharge: no Medical Emergencies . Who to Call and When: Medical Emergencies: If at any time you feel your situation is an emergency, please call 105 immediately. . Non-Emergent Contact Non-Emergency issues call your: Surgeon . "Provider Documentation" section prepared by Winston Lorenzana. . VTE Core Measure Inpt VTE Proph given/why not?: Other Anticoagulation, T.E.D. Kelly, SCD's
[2017-03-15] VITALS (7 sets, daily range): BP systolic 103–110; BP diastolic 62–70; PULSE 71–87; TEMP 36.7–37; O2SAT 93–99
[2017-03-15] MEDS: CEFAZOLIN IV 2,000 MG in DEXTROSE 5% 50ML 50 ML IV SCH (01:54)
[2017-03-15] MEDS: ACETAMINOPHEN 500 MG TAB PO SCH ×3 (05:24→21:13)
[2017-03-15] MEDS: SODIUM CHLORIDE 0.9% 1000ML 1,000 ML IV SCH (05:25)
[2017-03-15] MEDS: KETOROLAC TROMETHAMINE 30 MG/ML VIAL IV. SCH ×4 (05:25→23:27)
--- NOTE | 2017-03-15 08:19 | Orthopedic Progress Note ---
Orthopedic Progress Note Date of Service Mar 15, 2017. Subjective Post OP Day: 1 Additional Notes: Pain controlled. No chest pain or SOB. She was seen and examined by Dr. Lorenzana today Objective N/V intact, dressing C/D/I, A&O x3, toes mobile Date Time Temp Pulse Resp B/P (MAP) Pulse Ox O2 Delivery O2 Flow Rate FiO2 03/15/17 08:14 95 03/15/17 08:11 36.7 84 16 110/62 (78) 94 Room Air 03/15/17 03:46 36.9 71 15 103/65 (78) 99 Room Air 03/14/17 23:33 37.3 66 16 103/61 (75) 97 Nasal Cannula 2.5 03/14/17 23:31 Nasal Cannula 2.0 03/14/17 20:00 36.7 78 16 115/70 (85) 99 Nasal Cannula 2.0 03/14/17 15:32 36.5 81 16 132/83 (99) 99 Nasal Cannula 2.5 03/14/17 14:38 36.8 82 18 115/70 (85) 100 Nasal Cannula 2.0 03/14/17 13:30 36.5 71 16 139/84 (102) 99 Nasal Cannula 2.0 03/14/17 13:00 36.4 72 16 123/81 (95) 100 Nasal Cannula 2.0 03/14/17 12:30 99 Nasal Cannula 2.0 03/14/17 12:30 99 Nasal Cannula 2.0 03/14/17 12:30 36.4 69 16 118/81 (93) 99 Nasal Cannula 2.0 03/14/17 12:17 72 13 99 03/14/17 12:17 70 13 03/14/17 12:15 113/77 03/14/17 12:12 68 14 03/14/17 12:12 68 14 98 03/14/17 12:09 120/81 03/14/17 12:07 68 13 03/14/17 12:07 67 13 99 03/14/17 12:06 120/81 03/14/17 12:02 90 19 100 03/14/17 12:02 87 19 03/14/17 12:01 114/80 03/14/17 11:57 69 12 03/14/17 11:57 68 12 98 03/14/17 11:56 109/78 03/14/17 11:52 80 12 03/14/17 11:52 36.1 83 18 114/72 97 Nasal Cannula 2 03/14/17 11:52 83 12 97 03/14/17 11:51 114/72 03/14/17 11:47 71 13 99 03/14/17 11:47 71 13 03/14/17 11:46 112/77 03/14/17 11:42 72 13 03/14/17 11:42 73 13 100 03/14/17 11:41 133/77 03/14/17 11:37 67 11 100 03/14/17 11:37 68 11 03/14/17 11:36 110/74 03/14/17 11:32 70 13 99 03/14/17 11:32 69 13 03/14/17 11:31 94/70 03/14/17 11:27 76 13 03/14/17 11:27 79 13 100 03/14/17 11:26 100/72 03/14/17 11:22 78 18 03/14/17 11:22 75 18 100 03/14/17 11:21 116/77 03/14/17 11:17 79 22 100 03/14/17 11:17 77 22 03/14/17 11:16 111/70 03/14/17 11:12 76 15 03/14/17 11:12 77 15 100 03/14/17 11:11 103/72 03/14/17 11:07 86 16 100 03/14/17 11:07 81 16 03/14/17 11:06 114/62 03/14/17 11:03 96/66 03/14/17 11:02 36.3 78 16 96/66 98 Mask 10 Laboratory Results 24 Hours: Test 03/15/17 07:46 Assessment & Plan Assessment: POD #1 RIGHT TKA Discharge Planning Discharge Planning: home with home health Pain Management: other (PAIN CONTROLLED WITH CURRENT MANAGEMENT ) DVT Prophylaxis: TEDs, SCDs, ASA Therapy: Physical Therapy ([facility] )
[2017-03-15 08:25] LABS: HEMATOCRIT 31.6 % (37-47); MEAN CELL VOLUME 88.8 fL (80-100); MEAN CORPUSCULAR HEMOGLOBIN 29.8 pg (25-34); MEAN CORPUSCULAR HGB CONC 33.5 g/dl (32-36); MEAN PLATELET VOLUME 9.2 fL (7.4-10.4); PLATELET COUNT 181 K/uL (130-400); RED BLOOD COUNT 3.56 M/uL (4.2-5.4); WHITE BLOOD COUNT 8.53 K/uL (4.8-10.8)
[2017-03-15 08:55] LABS: BUN/CREATININE RATIO 18.4 (10-20); CALCIUM 8.6 mg/dl (8.5-10.1); CREATININE 0.67 mg/dl (0.60-1.20)
[2017-03-15] MEDS: DOCUSATE SODIUM 100 MG CAP PO SCH ×2 (09:00→21:12)
[2017-03-15] MEDS: ASPIRIN 325 MG ECTAB PO SCH ×2 (09:00→21:12)
[2017-03-15] MEDS: OXYCODONE HCL IR 5 MG TAB (IMMEDIATE RELEASE) PO PRN (09:00)
[2017-03-15] MEDS: CHOLECALCIFEROL 1000 INTER.UNIT TAB PO SCH (09:01)
[2017-03-15] MEDS: PANTOprazole SOD 40 MG TAB PO SCH (09:01)
[2017-03-15] MEDS: CALCIUM 600MG + VIT D 400 IU TAB PO SCH (09:01)
[2017-03-15] MEDS: MULTIVITAMIN TAB PO SCH (09:01)
[2017-03-15] MEDS: FERROUS GLUCONATE 324 MG TAB PO SCH ×3 (09:01→18:42)
[2017-03-15] MEDS: INSULIN HUMAN REGULAR SC SCH ×4 (09:07→21:00)
[2017-03-15] MEDS: TAPENTADOL ER 50 MG TABCR PO SCH ×2 (09:08→21:12)
--- NOTE | 2017-03-15 09:20 | Anesthesiology Progress Note ---
Anesthesia Post Op Note Date & Time Mar 15, 2017 at 09:19 Vital Signs Pain Intensity: 2.0 Vital Signs Past 12 Hours Date Time Temp Pulse Resp B/P (MAP) Pulse Ox O2 Delivery O2 Flow Rate FiO2 03/15/17 08:14 95 03/15/17 08:11 36.7 84 16 110/62 (78) 94 Room Air 03/15/17 03:46 36.9 71 15 103/65 (78) 99 Room Air 03/14/17 23:33 37.3 66 16 103/61 (75) 97 Nasal Cannula 2.5 03/14/17 23:31 Nasal Cannula 2.0 Notes Mental Status: alert / awake / arousable, participated in evaluation Pt Amnestic to Procedure: Yes Nausea / Vomiting: adequately controlled Pain: adequately controlled Airway Patency, RR, SpO2: stable & adequate BP & HR: stable & adequate Hydration State: stable & adequate Neuraxial Anesthesia: was administered, sensory block resolved Anesthetic Complications: no major complications apparent
--- NOTE | 2017-03-15 17:15 | Progress Note ---
Medicine Progress Note Date & Time of Visit: Mar 15, 2017 at 16:54. Subjective Pt was seen and examined Lying in bed comfortable with no distress Pt said that she feels fine She said that she feels a little dizzy early during PT Denies any chest pain, palpitation, dizziness and sob Objective Last 8 Hrs Date Time Temp Pulse Resp B/P (MAP) Pulse Ox O2 Delivery O2 Flow Rate FiO2 03/15/17 15:42 36.8 76 17 105/66 (79) 98 Room Air 03/15/17 12:12 36.8 80 17 107/70 (82) 95 Room Air Physical Exam: General- No acute distress Head- atraumatic Eyes- PERRL, EOMI ENT- oropharynx clear Neck- supple, no JVD Lungs- clear to auscultation Heart- regular rhythm; no murmur Abdomen- normal bowel sounds, soft Extremities- no calf tenderness Neuro- alert, oriented x 3; PERRL, EOMI Skin- warm & dry Laboratory Results: Last 24 Hours Test 03/14/17 17:32 03/14/17 20:42 03/15/17 07:46 03/15/17 08:02 Bedside Glucose 139 mg/dl 197 mg/dl 174 mg/dl White Blood Count 8.53 K/uL Red Blood Count 3.56 M/uL Hemoglobin 10.6 g/dL Hematocrit 31.6 % Mean Corpuscular Volume 88.8 fL Mean Corpuscular Hemoglobin 29.8 pg Mean Corpuscular Hemoglobin Concent 33.5 g/dl RDW Standard Deviation 42.0 fL RDW Coefficient of Variation 12.9 % Platelet Count 181 K/uL Mean Platelet Volume 9.2 fL Sodium Level 140 mmol/L Potassium Level 4.0 mmol/L Chloride Level 107 mmol/L Carbon Dioxide Level 28 mmol/L Anion Gap 5.0 mmol/L Blood Urea Nitrogen 12 mg/dl Creatinine 0.67 mg/dl Est Creatinine Clear Calc Drug Dose 112.4 ml/min Estimated GFR () 112.3 Estimated GFR (Non- 96.9 BUN/Creatinine Ratio 18.4 Random Glucose 168 mg/dl Calcium Level 8.6 mg/dl Test 03/15/17 11:57 Bedside Glucose 150 mg/dl Assessment & Plan S/P RIGHT TKA - POD#[address] Lorenzana - Incentive spirometry - pain control with bowel regimen - PT/OT - Hgb stable HX RIGHT ICA ANEURYSM - ruptured in 2010, s/p coiling - recent imaging showed enlargement and needs to be stented - discussed with Martha Velasco PA-C ([facility] [place] neurosurgery) - ok for patient to be on ASA 325mg BID for DVT prophylaxis DM - hgb a1c 6.5 12/2016 - hold oral agents and utilize SSI while hospitalized - Continue monitor BS DVT PROPHYLAXIS - ASA 325mg BID per ortho CODE STATUS FULL CODE Current Inpatient Medications: Current Inpatient Medications Medications (Trade) Dose Ordered Sig/Nitin Route Start Time Stop Time Status Last Admin Dose Admin Miscellaneous (Remove Transderm-Scop Patch) 1 ea Q72H N/A 03/17/17 06:00 03/17/17 06:01 Oxycodone HCl (Roxicodone Immediate Rel Tab) 1 TABLET FOR PAIN RATING... Q4H PRN PO 03/14/17 11:00 03/28/17 10:59 03/15/17 09:00 10 MG Morphine Sulfate (MoRPHine SULFATE INJ) 2 mg Q1H PRN IV 03/14/17 11:00 03/28/17 10:59 Acetaminophen (Tylenol Tab) 1,000 mg Q8H PO 03/14/17 22:00 04/13/17 10:59 03/15/17 13:08 1,000 MG Magnesium Hydroxide (Milk Of Magnesia Susp) 30 ml Q6H PRN PO 03/14/17 11:00 04/13/17 10:59 Bisacodyl (Dulcolax Supp) 10 mg DAILY PRN PA 03/14/17 11:00 04/13/17 10:59 Senna (Senokot Tab) 17.2 mg HS PO 03/14/17 21:00 04/13/17 20:59 03/14/17 20:57 17.2 MG Docusate Sodium (coLACE CAP) 100 mg BID PO 03/14/17 21:00 04/13/17 20:59 03/15/17 09:00 100 MG Diphenhydramine HCl (Benadryl Cap) 25 mg Q8H PRN PO 03/14/17 11:00 04/13/17 10:59 Diphenhydramine HCl (Benadryl Inj) 25 mg Q8H PRN IV 03/14/17 11:00 04/13/17 10:59 Al Hydrox/Mg Hydrox/Simethicone (Maalox Max Susp) 15 ml Q4H PRN PO 03/14/17 11:00 04/13/17 10:59 Zolpidem Tartrate (Ambien Tab) 5 mg HSZ PRN PO 03/14/17 11:00 04/13/17 10:59 Multivitamins (Multivitamin Tab) 1 tab QAM PO 03/15/17 09:00 04/14/17 08:59 03/15/17 09:01 1 TAB Ondansetron HCl (Zofran Inj) 4 mg Q6H PRN IV 03/14/17 11:00 04/13/17 10:59 Metoclopramide HCl (Reglan Inj) 10 mg Q6H PRN IV 03/14/17 11:00 04/13/17 10:59 Ferrous Gluconate (Ferrous Gluconate Tab) 324 mg TIDM PO 03/14/17 17:45 04/13/17 17:44 03/15/17 13:07 324 MG Pantoprazole Sodium (Protonix Tab) 40 mg QAM PO 03/15/17 09:00 04/14/17 08:59 03/15/17 09:01 40 MG Silver Sulfadiazine (Silvadene 1% Crm 50GM Jar) 1 appln BID PRN EXT 03/14/17 11:00 04/13/17 10:59 Aspirin (Ecotrin Tab) 325 mg BID PO 03/14/17 21:00 04/13/17 20:59 03/15/17 09:00 325 MG Tapentadol (Nucynta Er Tab) 50 mg Q12 PO 03/14/17 21:00 04/13/17 20:59 03/15/17 09:08 50 MG Ketorolac Tromethamine (Toradol Inj) 30 mg Q6H IV. 03/14/17 18:00 03/16/17 12:01 03/15/17 12:14 30 MG Calcium/Vitamin D (Caltrate Plus Tab) 1 tab QAM PO 03/15/17 09:00 04/14/17 08:59 03/15/17 09:01 1 TAB Cholecalciferol (Vitamin D Tab) 2,000 inter.unit QAM PO 03/15/17 09:00 04/14/17 08:59 03/15/17 09:01 2,000 INTER.UNIT Insulin Human Regular (novoLIN-R) SLIDING SCALE ACHS SC 03/14/17 17:15 04/13/17 17:14 03/15/17 13:12 2 UNITS Glucose (Glucose 40% Gel) 15-30 GRAMS 15 GRAMS... UD PRN PO 03/14/17 11:00 04/13/17 10:59 Glucose (Glucose Chew Tab) 4-8 Tablets 4 Tabl... UD PRN PO 03/14/17 11:00 04/13/17 10:59 Dextrose (Dextrose 50% 50ML Syringe) 25-50ML OF 50% DW IV FOR... UD PRN IV 03/14/17 11:00 04/13/17 10:59 Glucagon (Glucagon Inj) 1 mg UD PRN SQ 03/14/17 11:00 04/13/17 10:59
[2017-03-15] MEDS: SENNA 8.6 MG TAB PO SCH (21:46)
[2017-03-16] MEDS: ACETAMINOPHEN 500 MG TAB PO SCH (05:45)
[2017-03-16] MEDS: KETOROLAC TROMETHAMINE 30 MG/ML VIAL IV. SCH ×2 (05:45→12:56)
[2017-03-16 07:32] VITALS: BP 105/60; PULSE 80; TEMP 36.9; O2SAT 95
[2017-03-16 07:35] VITALS: O2SAT 95
[2017-03-16] MEDS: MULTIVITAMIN TAB PO SCH (09:01)
[2017-03-16] MEDS: FERROUS GLUCONATE 324 MG TAB PO SCH (09:01)
[2017-03-16] MEDS: CALCIUM 600MG + VIT D 400 IU TAB PO SCH (09:01)
[2017-03-16] MEDS: CHOLECALCIFEROL 1000 INTER.UNIT TAB PO SCH (09:01)
[2017-03-16] MEDS: PANTOprazole SOD 40 MG TAB PO SCH (09:01)
[2017-03-16] MEDS: INSULIN HUMAN REGULAR SC SCH (09:10)
[2017-03-16] MEDS: TAPENTADOL ER 50 MG TABCR PO SCH (09:12)
--- NOTE | 2017-03-16 09:20 | Orthopedic Progress Note ---
Orthopedic Progress Note Date of Service Mar 16, 2017. Subjective Post OP Day: 2 Additional Notes: pain controlled. No new complaints Objective N/V intact, dressing C/D/I, A&O x3, toes mobile Date Time Temp Pulse Resp B/P (MAP) Pulse Ox O2 Delivery O2 Flow Rate FiO2 03/16/17 07:35 95 Room Air 03/16/17 07:32 36.9 80 16 105/60 (75) 95 Room Air 03/15/17 23:41 Room Air 03/15/17 23:18 37.0 87 16 104/65 (78) 93 Room Air 03/15/17 16:30 98 Room Air 03/15/17 15:42 36.8 76 17 105/66 (79) 98 Room Air 03/15/17 12:12 36.8 80 17 107/70 (82) 95 Room Air Assessment & Plan Assessment: POD #2 RIGHT TKA Plan: She was seen and examined by Dr. Keys Discharge Planning Discharge Planning: home with home health Pain Management: other (PAIN CONTROLLED WITH CURRENT MANAGEMENT ) DVT Prophylaxis: TEDs, SCDs, ASA Therapy: Physical Therapy ([facility] )
[2017-03-16] MEDS: ASPIRIN 325 MG ECTAB PO SCH (09:50)
[2017-03-16] MEDS: DOCUSATE SODIUM 100 MG CAP PO SCH (09:50)
[2017-03-16 10:53] VITALS: BP 105/60; PULSE 80; TEMP 36.9; O2SAT 95
--- NOTE | 2017-03-27 07:23 | DISCHARGE SUMMARY ---
ADMITTING PHYSICIAN AND SURGEON: Dr. Lorenzana. ADMITTING DIAGNOSIS: Right knee degenerative joint disease. SURGERY PERFORMED: Right total knee arthroplasty. SECONDARY DIAGNOSES: Cerebral aneurysm, diabetes, mild obesity. CONSULTS: Dr. Mcghee for medical management history of cerebral aneurysm and diabetes. HISTORY AND PHYSICAL EXAMINATION: Well documented in the patient's chart. HOSPITAL COURSE: The patient was admitted on 03/14/2017 underwent total knee arthroplasty. She tolerated the procedure well. There were no complications. She was transferred to the PACU postoperatively and later to the orthopedic floor for further care. She was given Ancef for antibiotic prophylaxis, MIKAELA stockings, SCDs and aspirin were given for DVT prophylaxis. Hemoglobin, hematocrit and vital signs were monitored throughout her hospital stay. She remained stable. She developed some mild postoperative anemia, did not require any blood transfusions. There were no complications. By postoperative day 2, she was tolerating a diabetic diet. Pain was controlled with oral pain medicine. She was participating in physical therapy and had no signs or symptoms of deep vein thrombosis. On postop day 2, she was discharged home and set up with home health services. She was given printed discharge instructions including prescriptions for extra strength Tylenol, aspirin 325 mg b.i.d., iron supplement and oxycodone. Continue her home medications, continue physical therapy, weightbearing as tolerated, MIKAELA stockings. Follow up in 10-12 days or sooner if there are any problems or concerns.
== END 2017-03-16 13:55 | disposition home health service (06) | DRG 470 ==
LOC: C.ACU 06:07 → C.3E 06:30 → ENRESERV 11:26
PROVIDERS: ADMIT Orthopaedic Surgery Sports Medicine; ATTEND Orthopaedic Surgery Sports Medicine
PROC: 0SRC0J9 Replacement of Right Knee Joint with Synthetic Substitute, Cemented, Open Approach (ICD-10-PCS; principal; 2017-03-14 08:50)
DX: M17.11 Unilateral primary osteoarthritis, right knee (principal); E66.9 Obesity, unspecified; E11.9 Type 2 diabetes mellitus without complications; M25.461 Effusion, right knee; M21.061 Valgus deformity, not elsewhere classified, right knee; Z68.28 Body mass index [BMI] 28.0-28.9, adult; Z86.79 Personal history of other diseases of the circulatory system; Z86.19 Personal history of other infectious and parasitic diseases; Z79.899 Other long term (current) drug therapy; Z79.1 Long term (current) use of non-steroidal anti-inflammatories (NSAID); Z79.84 Long term (current) use of oral hypoglycemic drugs; Z79.891 Long term (current) use of opiate analgesic

== ENCOUNTER → 2017-04-20 | Outpatient (CLI) | payer BC ==
[~2017-04-20] MED LIST changes: +ACET-24 PO; -ACETAMINOPHEN 500 MG TAB PO SCH; +ASPEC325 PO; -BUPIVACAINE LIPOSOME 266 MG, BUPIVACAINE/EPINEPHRINE INJ 50 ML, SODIUM CHLORIDE 0.9% PF... INFIL SCH; -CEFAZOLIN 2000 MG/60 ML D5W 60 ML IV SCH; -FAMOTIDINE 20 MG TAB PO SCH; +FRRG PO; -GABAPENTIN 300 MG CAP PO SCH; -LACTATED RINGER'S 1000ML 1,000 ML IV SCH; -LACTATED RINGER'S 1000ML 500 ML IV ONE; -METOCLOPRAMIDE HCL 10 MG TAB PO SCH; +RXC5 PO; -SCOPOLAMINE 1.5 MG TDSY TD SCH
--- NOTE | 2017-04-20 15:58 | MAMMOGRAPHY REPORT ---
BILATERAL DIGITAL SCREENING MAMMOGRAM TOMOSYNTHESIS WITH CAD: 04/20/2017 CLINICAL HISTORY: Routine screening. TECHNIQUE: Breast tomosynthesis in addition to standard 2D mammography was performed. Current study was also evaluated with a Computer Aided Detection (CAD) system. COMPARISON: Comparison is made to exams dated: 03/31/2016 mammogram, 02/19/2015 mammogram, 02/09/2015 ma mmogram, 12/12/2013 mammogram, 10/01/2012 mammogram, and 05/23/2011 mammogram - [facility]ter. BREAST COMPOSITION: The tissue of both breasts is heterogeneously dense, which may obscure small mas ses. FINDINGS: No suspicious masses, calcifications, or areas of architectural distortion are noted in ei ther breast. There has been no significant interval change compared to prior exams. IMPRESSION: ACR BI-RADS CATEGORY 1: NEGATIVE There is no mammographic evidence of malignancy. A 1 year screening mammogram is recommended. The pa tient will receive written notification of the results. Approximately 10% of breast cancers are not detected with mammography. A negative mammographic report should not delay biopsy if a clinically suggestive mass is present. Fany Jauregui M.D. ah/:04/20/2017 14:58:52 Recycling Operator: Gricelda PANDEY(Liliane)(Travis), [facility] letter sent: Normal 1/2 BI-RADS Code: ACR BI-RADS Category 1: Negative
== END | disposition home or self-care (01) ==
LOC: C.MAMM 08:08
PROVIDERS: ATTEND Family Medicine
DX: Z12.31 Encounter for screening mammogram for malignant neoplasm of breast (principal)